=== PATIENT | female | born 1965 | race Caucasian/White ===

== ENCOUNTER 2021-08-12 16:08 | Emergency (ER) | payer SELFPAY ==
[~2021-08-12] VITALS: Ht 160 cm; Wt 96.6 kg
[~2021-08-12 16:08] MED LIST: BYDUREON2 MG IM; CITALOPRAM HBR40 MG PO; CRESTOR10 MG PO; GLIMEPIRIDE1 MG PO; IRON PO; LOSARTAN POTASS50 MG PO; METFORMIN HCL1000 MG PO; MULTI-VITAMIN1 EACH PO; VITAMIN B-121000 MCG PO
[2021-08-12] MEDS ORDERED: ACETAMINOPHEN 325 MG TAB PO ONE (16:45)
[2021-08-12] MEDS ORDERED: SODIUM CHLORIDE 0.9% 1000ML 1,000 ML IV SCH (16:45)
[2021-08-12 16:54] LABS: BASOPHILS % 0.2 % (0.0-1.0); HEMATOCRIT 41.5 % (34.2-44.1); HEMOGLOBIN 12.2 g/dL (12.0-16.0); LYMPHOCYTES # (AUTO) 0.9 (1.0-3.2); LYMPHOCYTES % 13.6 % (18.0-39.1); MEAN CORPUSCULAR HEMOGLOBIN 23.6 pg (28-32); MEAN CORPUSCULAR HGB CONC 29.4 g/dL (31-35); MEAN CORPUSCULAR VOLUME 80.4 fL (81-99); MONOCYTES # (AUTO) 0.5 (0.2-0.8); NEUTROPHILS # (AUTO) 5.2 (2.1-6.9); NEUTROPHILS % 77.7 % (38.7-80.0); PLATELET COUNT 347 x10e3/uL (140-360); RED BLOOD COUNT 5.16 x10e6/uL (3.6-5.1); RED CELL DISTRIBUTION WIDTH 15.9 % (11.7-14.4)
[2021-08-12] MEDS ORDERED: SODIUM CHLORIDE 0.9% 1000ML 1,000 ML IV ONE (17:00)
[2021-08-12 17:12] LABS: ALBUMIN 3.7 g/dL (3.5-5.0); ALBUMIN/GLOBULIN RATIO 0.8 (0.8-2.0); ANION GAP 21.9 mmol/L (8-16); CALCIUM 9.7 mg/dL (8.4-10.2); CREATININE, SERUM 1.07 mg/dL (0.57-1.11); POTASSIUM 3.9 mmol/L (3.5-5.1)
[2021-08-12 18:04] LABS: CLARITY,URINE SL CLOUDY (CLEAR); COLOR,URINE STRAW (YELLOW); KETONES,URINE 2+ (NEGATIVE); LEUKOCYTE ESTERASE ,URINE SMALL (NEGATIVE); NITRITE,URINE NEGATIVE (NEGATIVE); PROTEIN,URINE DIPSTICK >=300 (NEGATIVE); URINE UROBILINOGEN 0.2 mg/dL (0.2 - 1)
[2021-08-12 18:13] LABS: BACTERIA,URINE MODERATE /HPF; WBC,URINE (MAN) 21-50 /HPF (0-5)
[2021-08-12] MEDS ORDERED: NITROFURANTOIN100 MG PO (18:32)
[2021-08-12] MEDS ORDERED: VALTREX1000 MG PO (18:32)
== END 2021-08-12 18:48 | disposition home or self-care (01) ==
LOC: ER 16:49
DX: R50.9 Fever, unspecified (principal); N39.0 Urinary tract infection, site not specified; N76.6 Ulceration of vulva; E11.65 Type 2 diabetes mellitus with hyperglycemia; I10 Essential (primary) hypertension; Z20.822 Contact with and (suspected) exposure to COVID-19; E78.5 Hyperlipidemia, unspecified
CPT/HCPCS: 36415; 71045; 80053; 81001; 83605; 85025; 87040; 87086; 87252; 99284; J7030; U0002